=== PATIENT | male | born 1940 | race Caucasian/White ===

== ENCOUNTER 2023-11-16 08:21 | Day surgery (SDC) | payer OTHER, SELFPAY ==
[2023-11-10 13:06] VITALS: BMI 29.3
[2023-11-10 13:26] LABS: % Basophils 0.4 % (0-2); % Eosinophils 1.1 % (0-6); % Immature Granulocytes 0.4 % (0-0.5); % Lymphocytes 5.3 % (20.5-51.1); % Monocytes 8.2 % (1.7-9.3); % Neutrophils 84.6 % (42.2-75.2); Absolute Eosinophils 0.1 10^3/uL (0-0.7); Absolute Lymphocytes 0.4 10^3/uL (1.2-3.4); Absolute Monocytes 0.6 10^3/uL (0.1-0.6); Absolute Neutrophils 6.3 10^3/uL (1.4-6.5); Hemoglobin 14.8 g/dL (13.0-18.0); Mean Corp Hgb Conc. 35.2 g/dL (33.0-37.0); Mean Corpuscular Hgb 31.2 pg (27.0-31.0); Mean Corpuscular Volume 88.6 fL (80.0-94.0); Mean Platelet Volume 9.6 fL (7.4-10.4); Nucleated Red Blood Cells % 0 % (-); Platelet Count 190 10^3/uL (130-400); Red Blood Cell Count 4.74 10^6/uL (4.70-6.10); Red Cell Dist. Width 12.7 % (11.5-14.5); White Blood Cell Count 7.4 10^3/uL (4.8-10.8)
[2023-11-10 13:37] LABS: ALT (SGPT) 18 U/L (0-50); AST (SGOT) 22 U/L (17-59); Albumin 4.4 g/dl (3.5-5.0); Alkaline Phosphatase 75 U/L (38-126); Blood Urea Nitrogen 25 mg/dl (9-20); Calcium 9.6 mg/dl (8.4-10.2); Carbon Dioxide 26 mmol/L (22-30); Chloride 107 mmol/L (98-107); Estimated Creatinine Clearance 64 ml/min; Glucose 93 mg/dl (70-99); Magnesium 1.8 mg/dl (1.6-2.3); Potassium 3.9 mmol/L (3.5-5.1); Sodium 139 mmol/L (135-145); Total Bilirubin 0.9 mg/dl (0.2-1.3); Total Protein 7.1 g/dl (6.3-8.2); eGFR > 60.00
[2023-11-10 13:39] LABS: INR 1.11; PT 14.3 Sec (11.4-14.6)
[2023-11-16] VITALS (10 sets, daily range): BP systolic 89–131; BP diastolic 60–97
[2023-11-16] MEDS: NSS 500 IV (08:42)
[2023-11-16 12:33] LABS: ACT-LR - POC 226 Seconds (116-155)
[2023-11-16 12:52] LABS: ACT-LR - POC 268 Seconds (116-155)
[2023-11-16 13:09] LABS: ACT-LR - POC 268 Seconds (116-155)
[2023-11-16 13:32] LABS: ACT-LR - POC 319 Seconds (116-155)
--- NOTE | 2023-11-16 14:45 | ITS.CL.ABL ---
Bruise Trimmer - Ablation
Ablation
Procedure Report:
ELECTROPHYSIOLOGY ABLATION STUDY
DATE:: November 16, 2023 REFERRING: Dr. Boris Oliver
INDICATION: Persistent supraventricular tachycardia in the form of atrial fibrillation. Prior PVI with a 20 mm cryoballoon greater than 10 years ago
HISTORY: See H and P. As above
ANTIARRHYTHMIC DRUG: Metoprolol
PRE-PROCEDURE MAURO: CT was performed given the patient's esophageal stricture demonstrated no atrial thrombus and intracardiac ultrasound also demonstrated no atrial thrombus
PRESENTING RHYTHM: A-fib
'TIME-OUT': called and confirmed.
SEDATION/ANESTHESIA: provided via the anesthesia department using general anesthesia (LMA).
INTRAVENOUS/ARTERIAL ACCESS:
Right femoral venous - 8Fr
Left femoral venous - 8 Fr, 6 Fr
Vascade closure was utilized in the right and left groins.
Ultrasound guidance for bilateral femoral vein access was utilized by me to obtain access with demonstration of normal anatomy
CHADS-VASC Score:
HAS-Bled Score
PROCEDURE:
1. A decapolar CS catheter was placed within the CS for mapping and pacing. This was also used as the reference catheter for the 3-D map.
2. The intracardiac ultrasound catheter was positioned in the RA to identify the FO for targeting of transseptal puncture, assist in identification of the pulmonary vein ostia, monitoring pre and post ablation pulmonary vein flow velocities,
monitoring for 'bubble' formation during RF application as a sign of thermal injury, and to monitor for pericardial effusion during mapping and ablation procedure. Left atrial size, LV ejection fraction, and pulmonary vein flows were monitored
pre and post ablation procedure. The other valves were inspected and found to be free of significant regurgitation or stenosis.
3. Half of the calculated heparin bolus was administered prior to the first transeptal puncture. Transseptal puncture was performed to diagnose RA and LA pressure so that safety of LA mapping and ablation could be further assessed, and to access
the left atrium and pulmonary veins for mapping and ablation. This entailed advancing an 12 Barbadian pulse sheath with dilator into the superior vena cava and withdrawing both (monitoring intracardiac ultrasound, fluoroscopy and tip pressure) with
the tip oriented toward the atrial septum. The fossa ovalis was engaged (indicated by sudden displacement of the sheath tip as well as tenting of the fossa seen on intracardiac ultrasound). Left atrial access required a pass with the needle�Accu
cross system extended. Left atrial catheter position was confirmed by pressure monitoring (RA mean pressure 8 mm Hg and LA mean presure 14 mm Hg), LA saturation (99%), as well as fluoroscopy. The sheath was advanced over the dilator and
positioned in the left atrium. This procedure was repeated for the Agilis sheath. The remainder of the calculated heparin bolus was administered and heparin was
infused to maintain ACT at 300 -350 seconds throughout the case.
4. RA pacing was performed via the proximal decapolar poles and LA pacing was performed via the distal decapolr poles.
5. A quadrapolar catheter was first positioned at the His position for His Bundle recording which was tagged via the 3-D Navex sytem, and then passed to the RVA for RV pacing and recording.
6. The multipolar catheter and the pulse select catheter were placed in each of the LIPV, LSPV, RSPV and the RIPV.
7. Next, a 3-D map was created using Navex. A 3-D reconstructed CT image was compared to the 3-D Navex map to assist in anatomic interpretation, mapping and ablation. The CT image and the NavX image were fused.
8. The right pulmonary veins were isolated and wide grayling fashion. The left superior and left inferior pulmonary veins were isolated and ostial antral fashion with some connection at the posterior wall at the kelsey and roof. Pulmonary vein
lesions were given in these regions and the posterior wall of the left atrium as well as the left atrial floor was isolated with extrapulmonary vein lesions. The patient was converted to sinus rhythm and remapped with a multipolar catheter
demonstrating entrance and exit block in all 4 pulmonary veins as well as the posterior wall.
9. Normal sinus node and AV node function were noted. 0.2 mg of glycopyrrolate were given to prevent pause.
TOTAL FLOURO TIME: 26 minutes
TOTAL RF DURATION: 0 minutes
REVERSAL OF HEPARIN: 40 mg of protamine, slow IV administration
COMPLICATIONS:
None
Intracardiac US shows no pericardial effusion post ablation.
SUMMARY:
Complex left atrial mapping and ablation.
Isolation of the left atrial posterior wall as well as reisolation of the left veins at the posterior kelsey.
RECOMMENDATIONS:
1. Admit to monitored bed.
2. Resume anticoagulation
3. Out of bed in 2 hours
4. Consider same-day discharge at approximately 4:30 PM.
Copy to: Dr. Boris Oliver
--- NOTE | 2023-11-16 16:41 | W.PN.UPDATE ---
Update Note
Progress Note Update
Pt seen after PVI. Bilat groin sites with vascade closure, no ht/bleeding, non tender. OOB to chair, urinating without difficulty. Post EKG NSR 70s, no acute changes. Resume eliquis tonight. Continue other meds as before. Followup with Dr. Oliver as
scheduled. Home today if groin sites/tele remain stable.
[2023-11-16] MEDS: ANESTHETIC LOZENGE 1 LOZENGE PO (17:01)
== END 2023-11-16 17:16 | disposition home or self-care (01) ==
LOC: CATH 08:21
PROVIDERS: ATTENDING PHYSICIAN Internal Medicine Cardiovascular Disease; FAMILY PHYSICIAN Family Medicine; OTHER PHYSICIAN Internal Medicine Cardiovascular Disease
DX: I48.91 Unspecified atrial fibrillation (principal); I47.10 Supraventricular tachycardia, unspecified; I10 Essential (primary) hypertension; E78.00 Pure hypercholesterolemia, unspecified; Z85.46 Personal history of malignant neoplasm of prostate; Z87.19 Personal history of other diseases of the digestive system; Z87.891 Personal history of nicotine dependence; Z79.01 Long term (current) use of anticoagulants
CPT/HCPCS: C1732; C1894; C1769; C1730; C1892; C1759; 36415; 75572; 76937; 80053; 83735; 85025; 85610; 86850; 86900; 86901; 93005; 93656; C1760; Q9967

== ENCOUNTER → 2024-06-06 09:09 | Day surgery (SDC) | payer MEDICARE, SELFPAY ==
[2024-06-06] MEDS: ELIQUIS 5 MG PO (10:44)
--- NOTE | 2024-06-06 10:44 | ITS.CL.CARDI ---
Proof Machine Operator Supervisor - Cardioversion
Cardioversion
Procedure Report:
Date of Procedure: June 06 2024
Procedure: Cardioversion
Indication: Symptomatic atrial fibrillation
Performing Physician: Josh Mcgowan DO, FACC
Technique: The patient was brought to the holding area. Signed informed consent was obtained. A time out was called and performed. The patient was anesthetized by the anesthesia service. Anticoagulation status was reviewed and appropriate. R2 pads
were placed anteriorly and posteriorly. A 200 J synchronized biphasic shock restored normal sinus rhythm without significant bradycardia. There were no complications.
Conclusion: Uncomplicated cardioversion from atrial fibrillation to sinus rhythm.
Recommendation: Routine post cardioversion care. Continue superintendent terminal anticoagulation.
== END ==
LOC: CATH 09:09
PROVIDERS: ATTENDING PHYSICIAN Nuclear Medicine Nuclear Cardiology; FAMILY PHYSICIAN Family Medicine; OTHER PHYSICIAN Internal Medicine Cardiovascular Disease
DX: I48.19 Other persistent atrial fibrillation (principal); I10 Essential (primary) hypertension; E78.5 Hyperlipidemia, unspecified; Z85.46 Personal history of malignant neoplasm of prostate; Z87.891 Personal history of nicotine dependence; Z79.01 Long term (current) use of anticoagulants
CPT/HCPCS: 92960; 93005

== ENCOUNTER 2024-06-27 10:52 | Inpatient (IN) | payer MEDICARE, SELFPAY ==
--- NOTE | 2024-06-27 11:00 | PTCARENOTE ---
Patient admitted to IVU for Tikosyn load. Plan of care reviewed, A-flutter/fib, VSS. Baseline QTC 394. call de leon in reach
--- NOTE | 2024-06-27 11:03 | W.PN.CARDCBS ---
Addendum entered and electronically signed by Jordan Robles MD 06/27/24 16:19:
I saw and examined the patient.
The Account Adjuster's note was reviewed and I agree with the note.
Comment:
GEN: No distress, awake, Ox3
HEENT: supple, anicteric, mmm
LUNGS: CTA, no wheezes/rales
CV: Reg, tachy, S1/S2, 1/6 syst LSB, no gallop
ABD: soft, BS+, NT/ND
EXT: No edema
NEURO: Gross non-focal
SKIN: No rash
Plan:
Here for Tikosyn load. He is in atrial tachycardia with a mildly increased ventricular rate.
Will start 250 mcg twice daily and follow QT interval.
Continue Eliquis 5mg po bid. Cont Lopressor 50mg po bid Check echocardiogram.
Original Note:
Today's Communication / Plan
-
tikosyn load
follow QTc
continue eliquis
check TSH
Impression / Plan
-
Please refer to office note dated 06/01/24
Primary Musical String Maker: Dr. Deshpande
Assessment:
Symptomatic persistent atrial tachycardia
Tikosyn loading
Chronic OAC with eliquis
History of atrial fibrillation s/p PVI 2014, PVI 11/16/23
Failed CV 06/06/24
History of TAMANNA clot pre PVI 2014
HTN
HLD
Hypothyroidism
RLS
OA
History of prostate cancer
Former smoker
MAURO 12/06/14: EF 55%, severely dilated left atrium, moderately dilated right atrium, no clear thrombus detected in left atrial appendage
Plan:
-Patient with atrial fibrillation status post PVI in 2014, and most recently 11/16/2023 who recurred with atrial tachycardia versus atrial flutter, persistent over the last 2 to 3 months status post failed cardioversion 06/06/2024 now presents for
Tikosyn loading.
-EKG atypical aflutter vs atach with QTc 394ms
-awaiting labs
-continue eliquis, no missed doses as OP
-initiate tikosyn 250mcg Q12H. follow QTc
-continue OP lopressor, may need to decrease with addition of tikosyn
-continue OP losartan, norvasc as BP tolerates
-check TSH
-last imaging from 2014 as above, could consider repeating echo this admission
-for CV 06/29 if remains in atrial arrhythmia
-if fails tikosyn, would plan for repeat ablation
-d/w nursing
Progress Note - Musical String Maker
Subjective
Date of Service: June 27, 2024
reports some heart racing and SOB with exertion
Physical Exam
Physical Exam
GEN: No distress, awake, alert, oriented x3
HEENT: supple, anicteric, mmm, eomi
LUNGS: CTA B/L, no wheezes/rales
CV: Irreg, S1/S2, no murmur
ABD: soft, BS+, NT/ND
EXT: No cyanosis, clubbing, edema
NEURO: Gross non-focal
SKIN: Warm, pink, dry. No rash
[2024-06-27 11:08] VITALS: BMI 29.4
[2024-06-27 11:25] VITALS: BP 120/79
--- NOTE | 2024-06-27 11:45 | W.CARD.TIKOS ---
Initiate Tikosyn
-
I verify that the patient has not taken any verapamil (Isoptin/Calan), ketoconazole (Nizoral), cimetidine (Tagamet), trimethoprim (Trimpex), trimethoprim/sulfamethoxazole (Bactrim), megesterol (Megace), prochlorperazine (Compazine),
hydrochlorothiazide (HCTZ), dolutegravir (Tivicay) or any Class I or Class III anti-arrhythmic within the last three days
AND
I verify that the patient has not taken amiodarone within the last THREE months, or that the patient's amiodarone plasma concentration is <0.3 mcg/mL.
Does patient have a Ventricular Conduction Abnormality: No
I have assessed the baseline QTc interval (using QT for heart rate less than 60 bpm) and deemed the patient is appropriate for Dofetilide therapy. I understand that Tikosyn is contraindicated if the QTc is >440msec (500msec in patients with
ventricular conduction abnormalities).
Baseline QTc (in msec): 394
QTc interval is greater than 440msec without conduction abnormality OR greater than 500msec with a conduction abnormality, but acceptable to proceed per Cardiology attending.
Ordering Physician: Jean Paul Villegas
[2024-06-27 11:49] LABS: % Basophils 0.4 % (0-2); % Eosinophils 1.1 % (0-6); % Immature Granulocytes 0.4 % (0-0.5); % Lymphocytes 10.3 % (20.5-51.1); % Monocytes 12.3 % (1.7-9.3); % Neutrophils 75.5 % (42.2-75.2); Absolute Eosinophils 0.1 10^3/uL (0-0.7); Absolute Lymphocytes 0.5 10^3/uL (1.2-3.4); Absolute Monocytes 0.6 10^3/uL (0.1-0.6); Absolute Neutrophils 3.4 10^3/uL (1.4-6.5); Hematocrit 37.4 % (39.0-52.0); Hemoglobin 13.6 g/dL (13.0-18.0); Mean Corp Hgb Conc. 36.4 g/dL (33.0-37.0); Mean Corpuscular Hgb 32.2 pg (27.0-31.0); Mean Corpuscular Volume 88.4 fL (80.0-94.0); Mean Platelet Volume 9.3 fL (7.4-10.4); Nucleated Red Blood Cells % 0 % (-); Platelet Count 167 10^3/uL (130-400); Red Blood Cell Count 4.23 10^6/uL (4.70-6.10); Red Cell Dist. Width 13.1 % (11.5-14.5); White Blood Cell Count 4.5 10^3/uL (4.8-10.8)
[2024-06-27 12:15] LABS: ALT (SGPT) 18 U/L (0-50); AST (SGOT) 22 U/L (17-59); Alkaline Phosphatase 72 U/L (38-126); Blood Urea Nitrogen 22 mg/dl (9-20); Calcium 9.4 mg/dl (8.4-10.2); Carbon Dioxide 24 mmol/L (22-30); Chloride 105 mmol/L (98-107); Estimated Creatinine Clearance 63 ml/min; Glucose 107 mg/dl (70-99); Sodium 142 mmol/L (135-145); Total Bilirubin 0.7 mg/dl (0.2-1.3); Total Protein 6.4 g/dl (6.3-8.2); eGFR > 60.00
[2024-06-27 12:32] VITALS: BMI 29.4
[2024-06-27] MEDS: TIKOSYN 250 MCG PO ×2 (13:24→22:58)
--- NOTE | 2024-06-27 14:01 | CM ---
spoke to pt in room, he is prev indep, lives with is reyna 2 story home with no step sto enter. he has a cane and a walker to use at home if needed. he denies any dc planning needs. plan is for dc to home when medically stable.
[2024-06-27 14:25] LABS: TSH Reflex To Free T4 0.44 uIU/ml (0.47-4.68)
[2024-06-27 15:13] LABS: Free T4 1.56 ng/dl (0.78-2.19)
[2024-06-27 17:10] VITALS: BP 84/44
[2024-06-27 17:11] VITALS: BP 96/74
[2024-06-27 18:16] VITALS: BP 116/98
[2024-06-27 20:00] VITALS: BP 134/87
[2024-06-27] MEDS: ELIQUIS 5 MG PO (20:02)
[2024-06-27] MEDS: LOPRESSOR 50 MG PO (20:03)
--- NOTE | 2024-06-27 20:37 | PTCARENOTE ---
Received patient at change of shift. Awake, alert, and oriented sitting in bed. BP 116/98, A-fib/flutter 80s-90s, 96% on room air. Patient has no complaints. Discussed plan of care. Patient verbalized understanding. Call de leon within reach.
[2024-06-27 22:57] VITALS: BP 135/95
[2024-06-27] MEDS: KLONOPIN 2 MG PO (22:57)
[2024-06-27] MEDS: MIRAPEX, GENERIC 0.5 MG PO (22:58)
[2024-06-28] VITALS (8 sets, daily range): BP systolic 105–131; BP diastolic 74–92
[2024-06-28 05:31] LABS: Hematocrit 34.2 % (39.0-52.0); Hemoglobin 12.3 g/dL (13.0-18.0); Mean Corpuscular Hgb 31.4 pg (27.0-31.0); Mean Corpuscular Volume 87.2 fL (80.0-94.0); Platelet Count 144 10^3/uL (130-400); Red Blood Cell Count 3.92 10^6/uL (4.70-6.10); Red Cell Dist. Width 13.2 % (11.5-14.5)
[2024-06-28 06:05] LABS: Blood Urea Nitrogen 18 mg/dl (9-20); Calcium 9.4 mg/dl (8.4-10.2); Carbon Dioxide 28 mmol/L (22-30); Chloride 105 mmol/L (98-107); Estimated Creatinine Clearance 56 ml/min; Glucose 96 mg/dl (70-99); Potassium 4.3 mmol/L (3.5-5.1); Sodium 141 mmol/L (135-145); eGFR > 60.00
[2024-06-28] MEDS: PROTONIX 40 MG PO (07:44)
[2024-06-28] MEDS: ZYLOPRIM 100 MG PO (07:44)
[2024-06-28] MEDS: OSCAL CAL 500 1000 MG PO (07:44)
[2024-06-28] MEDS: MAGNESIUM OXIDE 500 MG PO (07:44)
[2024-06-28] MEDS: NORVASC 5 MG PO (07:46)
[2024-06-28] MEDS: LOPRESSOR 50 MG PO ×2 (07:46→20:08)
[2024-06-28] MEDS: SYNTHROID 150 MCG PO (07:46)
[2024-06-28] MEDS: COZAAR 50 MG PO (07:46)
[2024-06-28] MEDS: VITAMIN D3 (cholecalciferol) 25 MCG PO (07:46)
[2024-06-28] MEDS: ELIQUIS 5 MG PO ×2 (07:46→20:08)
--- NOTE | 2024-06-28 09:01 | W.PN.CARDCBS ---
Addendum entered and electronically signed by Jean Paul Villegas MD 06/28/24 09:32:
I saw and examined the patient.
The ALLERGY AND IMMUNOLOGY CHIEF or PA's note was reviewed and I agree with the note.
Comment: General: Well developed, well nourished in NAD.
Neck: Supple, no JVD, HJR, carotids +2 B/L, no bruits bilaterally.
Heart: Non displaced PMI, irregular, no murmurs, No S3, S4, no rubs.
Lungs: Clear to auscultation bilaterally, no wheeze, rhonchi, rubs bilaterally,
normal expiratory phase.
Extremities: No clubbing, cyanosis or edema bilaterally.
Neuro: Grossly nonfocal, awake, alert and oriented x3.
Remains in A-fib. Tolerating Tikosyn. For cardioversion in a.m. if remains in A-fib.
Original Note:
Today's Communication / Plan
-
Continue Tikosyn
For cardioversion in a.m. if remains in atrial arrhythmia
Impression / Plan
-
Please refer to office note dated 06/01/24
Primary Farm Tractor Mechanic: Dr. Deshpande
Assessment:
Symptomatic persistent atrial tachycardia vs atypical aflutter
Tikosyn loading
Chronic OAC with eliquis
History of atrial fibrillation s/p PVI 2014, PVI 11/16/23
Failed CV 06/06/24
History of TAMANNA clot pre PVI 2014
HTN
HLD
Hypothyroidism
RLS
OA
History of prostate cancer
Former smoker
MAURO 12/06/14: EF 55%, severely dilated left atrium, moderately dilated right atrium, no clear thrombus detected in left atrial appendage
ECHO 06/27/24: EF 60 to 65%, mild MR, trace AR, mild TR, PAP 35 mmHg, mild MT
Plan:
-Remains in atypical flutter versus atrial tachycardia on review of telemetry overnight
-Continue Tikosyn to 50 mcg every 12 hours. QTc stable thus far
-continue eliquis, no missed doses as OP
-continue OP lopressor
-continue OP losartan, norvasc as BP tolerates
-TSH 0.44, but free T4 compensated
-echo with results as above
-N.p.o. after midnight for CV 06/29 if remains in atrial arrhythmia
-if fails tikosyn, would plan for repeat ablation
-d/w nursing
PREADMIT DATA:
-Patient with atrial fibrillation status post PVI in 2014, and most recently 11/16/2023 who recurred with atrial tachycardia versus atrial flutter, persistent over the last 2 to 3 months status post failed cardioversion 06/06/2024 now presents for
Tikosyn loading.
Progress Note - Farm Tractor Mechanic
Subjective
Date of Service: June 28, 2024
No issues overnight
Objective
Labs:
06/28/24 05:13
06/28/24 05:13
Labs
Hgb 12.3 g/dL (13.0-18.0) L 06/28/24 05:13
Hct 34.2 % (39.0-52.0) L 06/28/24 05:13
Plt Count 144 10^3/uL (130-400) 06/28/24 05:13
Sodium 141 mmol/L (135-145) 06/28/24 05:13
Potassium 4.3 mmol/L (3.5-5.1) 06/28/24 05:13
BUN 18 mg/dl (9-20) 06/28/24 05:13
Creatinine 0.9 mg/dL (0.7-1.3) 06/28/24 05:13
Glucose 96 mg/dl (70-99) 06/28/24 05:13
Vital Signs and I&O:
Vital Signs
Temp Pulse Resp BP Pulse Ox
98.3 F 102 16 112/89 96
06/28/24 07:51 06/28/24 07:47 06/28/24 07:51 06/28/24 07:47 06/28/24 07:51
Vital Signs
Temp Pulse Resp BP Pulse Ox
98.3 F 102 16 112/89 96
06/28/24 07:51 06/28/24 07:47 06/28/24 07:51 06/28/24 07:47 06/28/24 07:51
Physical Exam
Physical Exam
GEN: No distress, awake, alert, oriented x3
HEENT: supple, anicteric, mmm, eomi
LUNGS: CTA B/L, no wheezes/rales
CV: Irreg, S1/S2, no murmur
ABD: soft, BS+, NT/ND
EXT: No cyanosis, clubbing, edema
NEURO: Gross non-focal
SKIN: Warm, pink, dry. No rash
[2024-06-28] MEDS: TIKOSYN 250 MCG PO ×2 (09:03→20:09)
[2024-06-28] MEDS: TYLENOL 650 MG PO (11:26)
--- NOTE | 2024-06-28 11:51 | CM ---
Addendum entered by Jaylyn Gibbs 06/28/24 11:59:
Telephone call to [facility] to check if Dofetilide 250 mcg is in stock. [facility] pharmacy states they have it in stock.
Original Note:
Reviewed chart. Met with Mr. Aviles to review discharge plans. He states he is feeling well and maybe able to go home soon. He states prior to admission he resides with her spouse in a two story home without any steps to enter. He states he has
to go up a full flight of steps to get to bedroom/full bathroom. He states he does not have a powder room on the first floor. He states prior to admission he was independent with ambulation and adls. He states he has a single point cane and
rolling walker at home for a knee replacement. He states he is scheduled for another knee replacement on August. He states he has a prescription plan and uses [facility]. Telephone call to his insurance to check on co-pay for Dofetilide 250 mcg
q 12. He has a zero co-pay. Reviewed co-pay with him. Will need a three day script to be sent to [facility] for a three day supply to go home with him. Medical work-up in progress. The discharge plan is to return home with his spouse when
medically stable.
[2024-06-28] MEDS: MIRAPEX, GENERIC 0.5 MG PO (22:14)
[2024-06-28] MEDS: KLONOPIN 2 MG PO (22:14)
--- NOTE | 2024-06-28 23:13 | PTCARENOTE ---
Addendum entered by Nasrin Call RN 06/29/24 01:53:
Per Dr. Mcgowan do an EKG at 0730 06/29 prior to next Tiksoyn dose. Ordered entered.
Original Note:
QTc following dose #4 Tiksoyn reading 528 ms, rhythm accelerated junctional rate 100. Dr. Mcgowan notified via [place] [employer]; EKG shown to JEAN MARIE Waddell. No new orders as this time. Pt. resting quietly with no complaints - (A-fib vs- acc.
junctional on monitor 90's-low 100's); other VSS.
[2024-06-29 04:34] VITALS: BP 135/94
--- NOTE | 2024-06-29 07:45 | W.PN.CARDCBS ---
Addendum entered and electronically signed by Melany Maldonado PA-C 06/29/24 14:57:
[id number]
Addendum entered and electronically signed by Jordan Robles MD 06/29/24 13:16:
I saw and examined the patient.
The Operating Room Scheduler's note was reviewed and I agree with the note.
Comment:
GEN: No distress, awake, Ox3
HEENT: supple, anicteric, mmm
LUNGS: CTA, no wheezes/rales
CV: Reg, S1/S2, 1/6 syst LSB, no gallop
ABD: soft, BS+, NT/ND
EXT: No edema
NEURO: Gross non-focal
SKIN: No rash
Plan:
S/P CV today. Back in sinus rhythm. Check QTc in sinus
Cont Tikosyn 250mcg po q12.
If stable ok for D/C today.
Addendum entered and electronically signed by Donte Deshpande MD 06/29/24 09:28:
Patient seen and examined
Reviewed ECGs from hospitalization
Ongoing atypical atrial flutter but tolerating dofetilide
Exam:
As per [facility] note
Cor regular
Learning x 3
Nonfocal neurologically
Assessment:
Symptomatic persistent atrial tachycardia vs atypical aflutter
Tikosyn loading
Chronic OAC with eliquis
History of atrial fibrillation s/p PVI 2014, PVI 11/16/23
Failed CV 06/06/24
History of TAMANNA clot pre PVI 2014
HTN
HLD
Hypothyroidism
RLS
OA
History of prostate cancer
Former smoker
MAURO 12/06/14: EF 55%, severely dilated left atrium, moderately dilated right atrium, no clear thrombus detected in left atrial appendage
ECHO 06/27/24: EF 60 to 65%, mild MR, trace AR, mild TR, PAP 35 mmHg, mild [place]
Plan:
-Remains in atypical flutter versus atrial tachycardia on review of telemetry overnight, HRs ~100 BPM
-Continue Tikosyn 250 mcg every 12 hours. QTc stable thus far, suspect QTc on EKG last evening inaccurate and overestimated
-continue eliquis, no missed doses as OP
-for CV today
-continue OP lopressor
-continue OP losartan, norvasc as BP tolerates
-TSH 0.44, but free T4 compensated
-echo with results as above
-if fails tikosyn, would plan for eval for repeat ablation
-OP cardiac follow up arranged
-plan for DC to home post CV later today
-d/w nursing
Original Note:
Today's Communication / Plan
-
continue tikosyn
follow QTc
for CV today
plan for DC to home post CV
Impression / Plan
-
Please refer to office note dated 06/01/24
Primary Furnace Helper: Dr. Deshpande
Assessment:
Symptomatic persistent atrial tachycardia vs atypical aflutter
Tikosyn loading
Chronic OAC with eliquis
History of atrial fibrillation s/p PVI 2014, PVI 11/16/23
Failed CV 06/06/24
History of TAMANNA clot pre PVI 2014
HTN
HLD
Hypothyroidism
RLS
OA
History of prostate cancer
Former smoker
MAURO 12/06/14: EF 55%, severely dilated left atrium, moderately dilated right atrium, no clear thrombus detected in left atrial appendage
ECHO 06/27/24: EF 60 to 65%, mild MR, trace AR, mild TR, PAP 35 mmHg, mild [place]
Plan:
-Remains in atypical flutter versus atrial tachycardia on review of telemetry overnight, HRs ~100 BPM
-Continue Tikosyn 250 mcg every 12 hours. QTc stable thus far, suspect QTc on EKG last evening inaccurate and overestimated
-continue eliquis, no missed doses as OP
-for CV today
-continue OP lopressor
-continue OP losartan, norvasc as BP tolerates
-TSH 0.44, but free T4 compensated
-echo with results as above
-if fails tikosyn, would plan for eval for repeat ablation
-OP cardiac follow up arranged
-plan for DC to home post CV later today
-d/w nursing
PREADMIT DATA:
-Patient with atrial fibrillation status post PVI in 2014, and most recently 11/16/2023 who recurred with atrial tachycardia versus atrial flutter, persistent over the last 2 to 3 months status post failed cardioversion 06/06/2024 now presents for
Tikosyn loading.
Progress Note - Furnace Helper
Subjective
Date of Service: June 29, 2024
no issues overnight. NPO for CV today
Objective
Labs:
06/28/24 05:13
06/28/24 05:13
Labs
Hgb 12.3 g/dL (13.0-18.0) L 06/28/24 05:13
Hct 34.2 % (39.0-52.0) L 06/28/24 05:13
Plt Count 144 10^3/uL (130-400) 06/28/24 05:13
Sodium 141 mmol/L (135-145) 06/28/24 05:13
Potassium 4.3 mmol/L (3.5-5.1) 06/28/24 05:13
BUN 18 mg/dl (9-20) 06/28/24 05:13
Creatinine 0.9 mg/dL (0.7-1.3) 06/28/24 05:13
Glucose 96 mg/dl (70-99) 06/28/24 05:13
Vital Signs and I&O:
Vital Signs
Temp Pulse Resp BP Pulse Ox
98.3 F 99 14 135/94 96
06/29/24 04:35 06/29/24 04:34 06/29/24 04:35 06/29/24 04:34 06/29/24 04:35
Vital Signs
Temp Pulse Resp BP Pulse Ox
98.3 F 99 14 135/94 96
06/29/24 04:35 06/29/24 04:34 06/29/24 04:35 06/29/24 04:34 06/29/24 04:35
Intake & Output
06/26/24 06/27/24 06/28/24 06/29/24
07:59 07:59 07:59 07:59
Intake Total 480 / 480
Balance 480 / 480
Physical Exam
Physical Exam
GEN: No distress, awake, alert, oriented x3
HEENT: supple, anicteric, mmm, eomi
LUNGS: CTA B/L, no wheezes/rales
CV: Irreg, S1/S2, no murmur
ABD: soft, BS+, NT/ND
EXT: No cyanosis, clubbing, edema
NEURO: Gross non-focal
SKIN: Warm, pink, dry. No rash
[2024-06-29 08:17] VITALS: BP 133/93
[2024-06-29] MEDS: ELIQUIS 5 MG PO (08:17)
[2024-06-29] MEDS: COZAAR 50 MG PO (08:18)
[2024-06-29] MEDS: ZYLOPRIM 100 MG PO (08:19)
[2024-06-29] MEDS: LOPRESSOR 50 MG PO (08:19)
[2024-06-29] MEDS: NORVASC 5 MG PO (08:19)
[2024-06-29] MEDS: PROTONIX 40 MG PO (08:19)
[2024-06-29] MEDS: SYNTHROID 150 MCG PO (08:19)
[2024-06-29] MEDS: OSCAL CAL 500 1000 MG PO (08:20)
[2024-06-29] MEDS: VITAMIN D3 (cholecalciferol) 25 MCG PO (08:20)
[2024-06-29] MEDS: MAGNESIUM OXIDE 500 MG PO (08:20)
[2024-06-29] MEDS: TIKOSYN 250 MCG PO (08:23)
--- NOTE | 2024-06-29 09:42 | PTCARENOTE ---
Received patient this morning resting in bed, anxious to have CV completed. Remains in A flutter, with rate in the low 100's. Ekg done prior to tikosyn dose as ordered with a QTc of 459, dose given as ordered. NPO x meds, awaiting CV.
--- NOTE | 2024-06-29 09:53 | CM ---
Reviewed chart. Met with Mr. Aviles to review discharge plans. He states he is feeling well and maybe able to go home soon. We reviewed the three day supply of Dofetilide to go home with him. [facility]. Prior to admission
he resides with his spouse in a two story home without any steps to enter. He has a full flight of steps to get to bedroom/full bathroom. He does not have a bathroom on the first floor. Prior to admission he was independent with ambulation and
adls. He has a single point cane and walker at home. He has a prescription plan and uses [facility]. Medical work-up in progress. The discharge plan is to return home with his spouse when medically stable.
[2024-06-29 10:57] VITALS: BP 113/87
--- NOTE | 2024-06-29 13:14 | ITS.CL.CARDI ---
Floor Coverings Salesperson - Cardioversion
Cardioversion
Procedure Report:
Date of Procedure: 06/29/24
Procedure: Cardioversion
Indication: Symptomatic atrial tachycardia
Performing Physician: Boris Mcneal MD
Technique: The patient was brought to the holding area. Signed informed consent was obtained. A time out was called and performed. The patient was anesthetized by the anesthesia service. Anticoagulation status was reviewed and appropriate. R2 pads
were placed anteriorly and posteriorly. A 200 J synchronized biphasic shock restored normal sinus rhythm without significant bradycardia. There were no complications.
Conclusion: Uncomplicated cardioversion from atrial tachycardia to sinus rhythm.
Recommendation: Routine post cardioversion care. Continue assisted anticoagulation.
[2024-06-29 13:46] VITALS: BP 126/92
--- NOTE | 2024-06-29 13:54 | PTCARENOTE ---
Patient returned to his room after CV in SR, anxious to go home. Offers no complaints, VSS, tt to cardiology re: discharge.
--- NOTE | 2024-06-29 14:17 | W.DS.TRANS ---
DC Summary - Greenhouse Specialist
-
Discharge Instructions:
Sleep Apnea Risk Low
Discharge Diagnosis/Procedures atrial tachycardia, tikosyn loading,
cardioversion
Diet Low Sodium
Activity As tolerated
Driving Restrictions No driving for 24 hours
Instructions:
Stand-Alone Forms:
Changes to Home Medications: Yes
Discharge Medications:
DC Medications w/original date entered in [employer]
allopurinol 100 mg tablet 100 mg PO DAILY Gout 10/08/14
amlodipine 5 mg tablet 5 mg PO DAILY Blood Pressure 10/08/14
clonazepam 1 mg tablet 2 mg PO HS Mental Health/Anxiety 10/08/14
omeprazole 20 mg tablet,delayed release 20 mg PO DAILY 10/08/14
apixaban 5 mg tablet (Eliquis) 5 mg PO BID Blood Clot Prevention/Tx 10/27/23
ascorbic acid (vitamin C) 500 mg tablet (Vitamin C) 500 mg PO DAILY Supplement 10/27/23
calcium 600 mg capsule 1,200 mg PO DAILY Supplement 10/27/23
cholecalciferol (vitamin D3) 25 mcg (1,000 unit) tablet (Vitamin D3) 25 mcg PO DAILY Supplement 10/27/23
levothyroxine 150 mcg tablet 150 mcg PO DAILY Thyroid 10/27/23
losartan 50 mg tablet 50 mg PO DAILY Blood Pressure 10/27/23
magnesium 200 mg tablet 400 mg PO DAILY Supplement 10/27/23
metoprolol tartrate 50 mg tablet 50 mg PO BID Blood Pressure 06/27/24
pramipexole 0.5 mg tablet 0.5 mg PO HS 06/27/24
dofetilide 250 mcg capsule 250 mcg PO Q12H #180 caps 06/29/24
Home Medication Changes
tikosyn is new
Pending Results: No
[2024-06-29 14:21] VITALS: BP 113/86
--- NOTE | 2024-06-29 16:25 | PTCARENOTE ---
VSS, patient remains in SR with 1st degree heart block. Seen by cardiology and is ok for discharge. Given 3 day supply of tikosyn. Reviewed discharge instructions including medication changes and follow up appointment and he states his
understanding. Patient discharged home with his .
== END 2024-06-29 16:00 | disposition home or self-care (01) | DRG 310 ==
LOC: IVU 10:52
PROVIDERS: Internal Medicine Interventional Cardiology; Physician Assistant; ADMITTING PHYSICIAN Internal Medicine Cardiovascular Disease; FAMILY PHYSICIAN Family Medicine
PROC: 3E033GC Introduction of Other Therapeutic Substance into Peripheral Vein, Percutaneous Approach (ICD-10-PCS; 2024-06-27)
PROC: 5A2204Z Restoration of Cardiac Rhythm, Single (ICD-10-PCS; 2024-06-29)
DX: I47.19 Other supraventricular tachycardia (principal); I11.9 Hypertensive heart disease without heart failure; E78.5 Hyperlipidemia, unspecified; E03.9 Hypothyroidism, unspecified; Z87.891 Personal history of nicotine dependence; Z79.01 Long term (current) use of anticoagulants; G25.81 Restless legs syndrome; M19.90 Unspecified osteoarthritis, unspecified site
CPT/HCPCS: 80048; 80053; 84439; 84443; 85025; 85027; 92960; 93005; 93306

== ENCOUNTER → 2024-07-12 15:14 | Outpatient (REF) | payer MEDICARE, SELFPAY | LOC: RAD 15:14 | PROVIDERS: ATTENDING PHYSICIAN Nurse Practitioner; FAMILY PHYSICIAN Family Medicine | DX: Z13.6 Encounter for screening for cardiovascular disorders (principal) | CPT/HCPCS: 76770 ==

== ENCOUNTER → 2024-07-26 09:32 | Day surgery (SDC) | payer MEDICARE, SELFPAY ==
[2024-07-26] MEDS: ELIQUIS 5 MG PO (12:57)
--- NOTE | 2024-07-26 13:29 | ITS.CL.CARDI ---
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
Cardioversion
Procedure Report:
Procedure: Direct current electrical cardioversion
Pre-operative diagnosis: Persistent atrial flutter/tachycardia
Post-operative diagnosis: Persistent atrial flutter/tachycardia status post DC cardioversion to sinus rhythm
Anesthesia: MAC
Attending Physician: Jacques Muhammad MD
Procedure Description: The patient was brought to the electrophysiology laboratory in the fasting state. Adherence to anticoagulation regimen was confirmed. Informed consent was obtained from the patient prior to the start of the procedure.
Electrodes were placed on the patient and connected to an external defibrillator. Monitoring of blood pressure, ECG tracings, and pulse oximetry was initiated. The pads were applied to the patient in the anterior and posterior positions. The patient
was sedated by the anesthesiologist. A 200 joule biphasic synchronized shock was delivered to the patient under MAC anesthesia. Sinus rhythm was successfully restored. The patient recovered uneventfully from MAC anesthesia. There were no immediate
post-procedure complications. The patient left the lab in good condition. The attending physician was present throughout the entire procedure.
Impression: Successful direct current cardioversion with baptist of sinus rhythm after one 200 joule biphasic synchronized shock.
== END ==
LOC: CATH 09:32
PROVIDERS: ATTENDING PHYSICIAN Internal Medicine Cardiovascular Disease; FAMILY PHYSICIAN Family Medicine; OTHER PHYSICIAN Internal Medicine Cardiovascular Disease
DX: I48.92 Unspecified atrial flutter (principal); I48.91 Unspecified atrial fibrillation; I10 Essential (primary) hypertension; E78.00 Pure hypercholesterolemia, unspecified; Z85.46 Personal history of malignant neoplasm of prostate; Z87.891 Personal history of nicotine dependence; Z79.01 Long term (current) use of anticoagulants
CPT/HCPCS: 92960; 93005

== ENCOUNTER 2024-10-02 06:52 | Day surgery (SDC) | payer OTHER, SELFPAY ==
[2024-10-02 07:22] VITALS: BMI 28.1
--- NOTE | 2024-10-02 08:31 | ITS.CL.CARDI ---
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
Cardioversion
Procedure Report:
Date of Procedure: Oct 02 2024
Procedure: Cardioversion
Indication: Symptomatic atrial fibrillation
Performing Physician: Josh Mcgowan DO, FACC
Technique: The patient was brought to the holding area. Signed informed consent was obtained. A time out was called and performed. The patient was anesthetized by the anesthesia service. Anticoagulation status was reviewed and appropriate. R2 pads
were placed anteriorly and posteriorly. A 200 J synchronized biphasic shock restored normal sinus rhythm without significant bradycardia. There were no complications.
Conclusion: Uncomplicated cardioversion from atrial fibrillation to sinus rhythm.
Recommendation: Routine post cardioversion care. 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
--- NOTE | 2024-10-02 08:48 | ITS.CL.CARDI ---
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
Cardioversion
Procedure Report:
Date of Procedure: Oct 02 2024
Procedure: Cardioversion
Indication: Symptomatic atrial fibrillation
Performing Physician: Josh Mcgowan DO, FACC
Technique: The patient was brought to the holding area. Signed informed consent was obtained. A time out was called and performed. The patient was anesthetized by the anesthesia service. Anticoagulation status was reviewed and appropriate. R2 pads
were placed anteriorly and posteriorly. A 200 J synchronized biphasic shock restored normal sinus rhythm without significant bradycardia. There were no complications.
Conclusion: Uncomplicated cardioversion from atrial fibrillation to sinus rhythm.
Recommendation: Routine post cardioversion care. 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
== END 2024-10-02 09:00 | disposition home or self-care (01) ==
LOC: CATH 06:52
PROVIDERS: ATTENDING PHYSICIAN Nuclear Medicine Nuclear Cardiology; FAMILY PHYSICIAN Family Medicine; OTHER PHYSICIAN Internal Medicine Cardiovascular Disease
DX: I48.91 Unspecified atrial fibrillation (principal); I10 Essential (primary) hypertension; E78.00 Pure hypercholesterolemia, unspecified; Z85.46 Personal history of malignant neoplasm of prostate; Z87.891 Personal history of nicotine dependence; Z79.01 Long term (current) use of anticoagulants
CPT/HCPCS: 92960; 93005

== ENCOUNTER 2024-10-27 07:52 | Day surgery (SDC) | payer OTHER, SELFPAY ==
[2024-10-27] VITALS (23 sets, daily range): BP systolic 95–129; BP diastolic 48–86
[2024-10-27 11:31] LABS: ACT-LR - POC 265 Seconds (116-155)
[2024-10-27 11:49] LABS: ACT-LR - POC 298 Seconds (116-155)
[2024-10-27 12:08] LABS: ACT-LR - POC 302 Seconds (116-155)
--- NOTE | 2024-10-27 12:37 | ITS.CL.ABL ---
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
Ablation
Procedure Report:
ELECTROPHYSIOLOGY ABLATION STUDY
DATE:: October 27, 2024�����������������������������REFERRING: Dr. Boris Oliver
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
HISTORY: See H and P.��As above
ANTIARRHYTHMIC DRUG: Dofetilide
PRE-PROCEDURE MAURO: No atrial thrombus on intracardiac ultrasound
PRESENTING RHYTHM: Sinus bradycardia
'TIME-OUT':��called and confirmed.
SEDATION/ANESTHESIA:��provided via the anesthesia department using general anesthesia (LMA).
INTRAVENOUS/ARTERIAL ACCESS:
Right femoral venous - 8Fr
Left femoral venous - 8 Fr, 6 Fr
[id number] suture to bilateral groins
Ultrasound guidance for bilateral femoral vein access was utilized by me to obtain access with demonstration of normal anatomy
CHADS-VASC Score:
HAS-Bled Score
PROCEDURE:
1.��A decapolar CS catheter was placed within the CS for mapping and pacing.��This was also used as the reference catheter for the 3-D map. We perform CTI flutter ablation at baseline after 100 mics of nitroglycerin was given. Radiofrequency
energy at 400 W over 5 seconds was delivered at the tricuspid annulus approximately and then PFA energy from the mid isthmus back towards the IVC with intra isthmus conduction time of 140 ms and bidirectional block with split doubles across the line.
2. The intracardiac ultrasound catheter was positioned in the RA to identify the FO for targeting of transseptal puncture, assist��in identification of the pulmonary vein ostia, monitoring pre and post ablation pulmonary vein flow velocities,
monitoring for 'bubble' formation during RF application as a sign of thermal injury,��and to monitor for pericardial effusion during mapping and ablation procedure.���Left atrial size, LV ejection fraction, and pulmonary vein flows were monitored
pre and post ablation procedure. The other valves were inspected and found to be free of significant regurgitation or stenosis.
3.��Half of the calculated heparin bolus was administered prior to the first transeptal puncture.��Transseptal puncture was performed to diagnose RA and LA pressure so that safety of LA mapping and ablation could be further assessed, and to access
the left atrium and pulmonary veins for mapping and ablation.��This entailed advancing an 10 Marshallese steerable with dilator into the superior vena cava and withdrawing both (monitoring intracardiac ultrasound, fluoroscopy and tip pressure) with the
tip oriented toward the atrial septum.��The fossa ovalis was engaged (indicated by sudden displacement of the sheath tip as well as tenting of the fossa seen on intracardiac ultrasound).��Left atrial access required a pass with the [place]
needle extended.��Left atrial catheter position was confirmed by pressure monitoring (RA mean pressure 8 mm Hg and LA mean pressure 14 mm Hg), LA saturation (99%),��as well as fluoroscopy.��The sheath was advanced over the dilator and positioned in
the left atrium.��This procedure was repeated for the Agilis sheath.��The remainder of the calculated heparin bolus was administered and heparin was
infused to maintain ACT at 300 -350 seconds throughout the case.
4.��RA pacing was performed via the proximal decapolar poles and LA pacing was performed via the distal decapolar poles.
5. A quadrapolar catheter was first positioned at the His position for His Bundle recording which was tagged via the 3-D Navex sytem, and then passed to the RVA for RV pacing and recording.
6. The lattice catheter was placed in each of the LIPV, LSPV, RSPV and the RIPV.��
7.��Next, a 3-D map was created using Navex.���A 3-D reconstructed CT image was compared to the 3-D Navex map to assist in anatomic interpretation, mapping and ablation.��The CT image and the NavX image were fused.
8. Pulmonary veins were isolated at baseline. The posterior wall was isolated at baseline. Lesions were given at the base of the right inferior pulmonary vein and the septal inferior and posterior aspects and the posterior box lesion set from
prior procedure was extended to the floor into the roof with PFA energy. We then performed a program stim which can induce both atrial fibrillation and atrial tachycardia with a distal to proximal CS activation to 270-280 ms although this would not
sustain and spontaneously terminated repetitively into sinus rhythm. Given the distal to proximal activation and isolation at baseline of the posterior wall and the pulmonary veins we performed mitral flutter ablation utilizing intracardiac
ultrasound guidance with radiofrequency energy at the mitral valve annulus towards the mid mitral isthmus back towards the left inferior pulmonary vein with PFA on the back half of the line. 100 mics of nitroglycerin was given prior to this lesion
set as well and ST segments were stable. After performing this there was bidirectional block across the mitral isthmus intra isthmus conduction time of 130 ms pacing from distal coronary sinus and recording from the base the left atrial appendage.
After this the patient was noninducible for any other tachyarrhythmia.
9. Normal sinus node and AV node function were noted.
TOTAL FLOURO TIME: 20.1 minutes 153 mGy
TOTAL RF DURATION: 4 minutes
REVERSAL OF HEPARIN: 35 mg of protamine, slow IV administration
COMPLICATIONS:
None
Intracardiac US shows no pericardial effusion post ablation.
SUMMARY:��
Complex left atrial mapping and ablation.
CTI flutter ablation with bidirectional block. Mitral isthmus flutter ablation from 4:00 on the mitral annulus back to left inferior pulmonary vein with bidirectional block. Substrate modification at the base of the right inferior pulmonary vein
and the floor of the left atrium.
RECOMMENDATIONS:
1. Out of bed in 4 hours
2. Resume lifelong anticoagulation
3.��Continue dofetilide
4.��Consider same-day discharge
Copy to: Dr. Boris Oliver
--- NOTE | 2024-10-27 16:58 | W.PN.UPDATE ---
Update Note
Progress Note Update
Pt seen post PFA. Bilat groin sites without ht/bleeding, oob ambulating, urinating without difficulty. Post EKG NSR 70s, no acute changes. Resume eliquis tonight at usual time, continue dofetilide, metoprolol tartrate as before. Followup at [facility] as
scheduled. Home today if groin sites/tele remain stable.
== END 2024-10-27 18:30 | disposition home or self-care (01) ==
LOC: CATH 07:52
PROVIDERS: ATTENDING PHYSICIAN Internal Medicine Cardiovascular Disease; FAMILY PHYSICIAN Family Medicine
DX: I48.3 Typical atrial flutter (principal); I48.4 Atypical atrial flutter; Z79.01 Long term (current) use of anticoagulants; Z88.6 Allergy status to analgesic agent; I47.19 Other supraventricular tachycardia; I48.0 Paroxysmal atrial fibrillation; I10 Essential (primary) hypertension; Z79.890 Hormone replacement therapy; Z79.899 Other long term (current) drug therapy
CPT/HCPCS: 93662; C1894; C1730; C1766; C1892; C1759; C1733; 85347; 86850; 86900; 86901; 93005; 93462; 93653; 93655